=== PATIENT | female | born 1930 | race Caucasian/White ===

== ENCOUNTER 2016-08-07 12:16 | Inpatient (IN) | payer MEDICARE, OTHER ==
--- NOTE | ~2016-08-07 | HP ---
History And Physical [place] [id number] [facility] [place]. [address] NAME: VELASQUEZ RIVAS : 32 STATUS : ADM Tayler PAT#: [id number] AGE: 86 ADM/REG DATE : 08/07/16 MR#: [id number] REPORT SERV DATE: 08/07/16 DICTATED BY: LAVONNE LIU DATE: 08/07/16 REPORT STATUS : Draft TRANSCRIBED BY: MODL DATE: 08/07/16 DATE OF ADMISSION: 08/07/2016 CHIEF COMPLAINT: Shortness of breath with hypoxia on arrival and diarrhea. HISTORY OF PRESENT ILLNESS: The patient is a very pleasant 86-year-old female with past medical history of renal transplant in 1991, on chronic immunosuppressive therapy secondary to hypertension history but has been well controlled since, who presents after having multiple episodes of diarrhea today and shortness of breath. On arrival, the patient was noted to be hypoxic. The patient reports that every time she stands up, she is having loose bowel pattern that has been constant without pain or blood or no nausea or vomiting. No fever or chills, but has also concurrently been having 4 to 5 days of cough that has been waking her up from sleep with occasional shortness of breath. No dizziness or weakness per the patient. There are no worsening or relieving symptoms. Symptoms still currently present. Does not use oxygen at home but was noted to be hypoxic in the emergency room but responded to 2 L by nasal cannula. REVIEW OF SYSTEMS: GENERAL: No fevers or dizziness. EYES: No eye pain or visual change. ENT: Does have cough with minor production. NEUROLOGIC: No headache or confusion. SKIN: No rash or bruising. RESPIRATORY: Does have shortness of breath with cough. CV: No chest pain or palpitations. GI: Does have diarrhea with no nausea or vomiting. No dark stools or blood in stools or abdominal pain. No dysuria or hematuria. MUSCULOSKELETAL: No myalgias or arthralgias. ENDO: No fatigue. HEME: No bleeding or bruising. IMMUNOLOGIC: No rhinorrhea. PSYCHIATRIC: No anxiety or confusion. She did have episode of 1 fall yesterday which she used a Life Alert to get help with but no injury as she reports she just slipped from her bed. PAST MEDICAL HISTORY: The patient reports kidney transplant secondary to hypertension but since, has been doing well. Does have a seizure history. Vitamin D. TIAs. Osteoarthritis. Chronic immunosuppression. PAST SURGICAL HISTORY: Thyroid ablation; bilateral inguinal hernias; tonsillectomy; hysterectomy; renal transplant; right lower extremity rodding; transplant was done in 1991. Has had 7 children. The patient reports the name of her kidney donor is Ashley. SOCIAL HISTORY: No smoking. She is told to drink 1 alcohol beverage a week to keep good flow through her kidneys. No illicits. Has been single since the 80s. History And Physical [address] [place]. [address] NAME: VELASQUEZ RIVAS : 32 STATUS : ADM Tayler PAT#: [id number] AGE: 86 ADM/REG DATE : 08/07/16 MR#: [id number] REPORT SERV DATE: 08/07/16 DICTATED BY: LAVONNE LIU DATE: 08/07/16 REPORT STATUS : Draft TRANSCRIBED BY: DIO DATE: 08/07/16 FAMILY HISTORY: The patient does not recall any family history. Denies any recollection of any coronary disease, hypertension, or kidney issues. ALLERGIES: TO IV CONTRAST AND CIPRO. HOME MEDICATIONS: Aspirin; Imuran; Caltrate; Plavix; vitamin B; Neoral; folic acid; Keppra; Synthroid; Claritin; fish oil; and Deltasone. PHYSICAL EXAMINATION: VITAL SIGNS: Blood pressure 116/54, temperature 98.1, pulse 87, respirations 19, and O2 sats 93%. GENERAL: No acute distress. Calm, pleasant, well developed, well nourished. EYES: No scleral icterus. EOMI. ENT: Nares patent but dry mucous membranes. RESPIRATORY: No wheezes or rales. Clear to auscultation in the anterior lung odmo. Mild decreased lung sounds in the posterior lower lung odom. No stridor. CV: Regular rate. No rubs or gallops. GI: Soft, nontender. Hemoccult negative. Bowel sounds positive. : Deferred. MUSCULOSKELETAL: Moves all extremities x4. SKIN: Warm and dry. LYMPH: Does have mild right cervical tenderness. HEME: No bleeding or bruising. NEUROLOGIC: Alert and oriented. Moves all extremities x4. Symmetrical strength in upper and lower extremities. PSYCHIATRIC: Appropriate mood and affect. DATA: Chest x-ray, mild bibasilar atelectasis with trace left pleural effusion. Urinalysis, negative leukocyte esterase, nitrite but many bacteria. ABG, pH 7.38, PCO2 of 36, PO2 of 58, bicarb 20.7. CMP: Sodium 138, potassium 3.9, chloride 105, bicarb 21, BUN and creatinine 21 and 0.89. Glucose 119. Calcium 8.5. T-bilirubin 0.5. LFTs within normal limits. Troponin negative. CBC grossly within normal limits. ASSESSMENT AND PLAN: 1. Bronchitis. 2. Diarrhea. 3. Seizure history. 4. Immunosuppression. 5. TIA history. 6. Fall. PLAN: 1. For bronchitis with hypoxia on arrival, O2, DuoNeb, supportive treatment. Start doxycycline. O2 trial in a.m. Flutter valve and ICS. Repeat chest x-ray in a.m. 2. Diarrhea. Check stool studies. Gentle IV fluids. 3. Seizure history. Keppra. History And Physical [address] [address] NAME: VELASQUEZ RIVAS : 32 STATUS : ADM Tayler PAT#: [id number] AGE: 86 ADM/REG DATE : 08/07/16 MR#: [id number] REPORT SERV DATE: 08/07/16 DICTATED BY: LAVONNE LIU DATE: 08/07/16 REPORT STATUS : Draft TRANSCRIBED BY: MODMaddy DATE: 08/07/16 4. Immunosuppression. Continue home medications. 5. TIA history. Continue Plavix and aspirin. 6. Fall, slipped from bed, does have Life Alert for protection. We will check CPK in a.m. All questions answered with the patient and the family at the bedside. Disposition pending treatment plan. DDN/MODL Lavonne Liu MD / [id number] CC: Thong Reynoso MD
--- NOTE | ~2016-08-07 | DS ---
Discharge Summary [facility] [address] [place]. [address] NAME: VELASQUEZ RIVAS : 32 STATUS : DIS IN PAT#: [id number] AGE: 86 ADM/REG DATE : 08/08/16 MR#: [id number] REPORT SERV DATE: 08/10/16 DICTATED BY: MAGALI LUONG DATE: 08/10/16 REPORT STATUS : Draft TRANSCRIBED BY: MODL DATE: 08/10/16 ADMISSION DATE: 08/08/2016 DISCHARGE DATE: 08/10/2016 HOSPITAL COURSE: 86-year-old pleasant female with known history of renal transplant in 1991 on chronic immunosuppressant medication, history of hypertension, hypovitaminosis D, history of seizure, TIA, osteoarthritis, known history of thyroid ablation, and right lower extremity ORIF. The patient comes in shortness of breath, diarrhea, thought to have had a bronchitis placed on doxycycline, DuoNeb, incentive spirometry oxygen, found to have influenza A, pneumonia, was resumed on her home dose Keppra. The patient has had a fall risk history. As a result, Physical Therapy evaluated the patient. PA lateral chest x-ray most recently shows improvement in aeration, decreased infiltration. The patient, as a result, is amenable to be discharged. I would like Physical Therapy to make a formal assessment regarding SNF rehab versus home. If it is home, we will provide home health, home PT, rolling walker and the patient has a rolling walker at home. She is on Tamiflu and doing quite well with improvement with decreased oxygen requirements. DISCHARGE MEDICATIONS: Aspirin 81 p.o. daily; azathioprine 50 p.o. daily; Caltrate 600 p.o. at bedtime; Plavix 75 p.o. daily; vitamin B12 1 mg p.o. daily; Neoral 75 p.o. b.i.d. as well as folic acid 1 mg p.o. daily; Keppra 250 p.o. daily as well as Keppra 500 p.o. at bedtime; Claritin p.r.n.; Synthroid 100 mcg p.o. q.a.m.; omega 3 fatty acids 1 mg p.o. daily; Tamiflu 75 p.o. daily for 3 more days, given a little bit more prolonged course given immunosuppression, prednisone 5 p.o. daily. Albuterol, see order p.r.n. Given nebulizers as well. FOLLOWUP: PCP 2 weeks. Nephrology 4 to 8 weeks. Discharge home with rolling walker, home health, home PT. If PT recommends going to facility, will be going to facility via ambulance #6, do a rolling walker. Discharge diagnoses will be influenza A, pneumonia, debility, immunosuppression, hypertension, hypothyroidism, renal transplant. All questions were answered. It took well over 30 minutes to do. JONNY/DIO Magali Luong DO / [id number] CC: Discharge Summary [address] [address] NAME: VELASQUEZ RIVAS : 32 STATUS : DIS IN PAT#: [id number] AGE: 86 ADM/REG DATE : 08/08/16 MR#: [id number] REPORT SERV DATE: 08/10/16 DICTATED BY: MAGALI LUONG DATE: 08/10/16 REPORT STATUS : Draft TRANSCRIBED BY: MODMaddy DATE: 08/10/16 Ramon Young M.D.
[~2016-08-07 12:16] MED LIST: ARMOUR; ASAB PO; B12250T PO; CALTRA600D PO; CLARIT10 PO; CYCLOSPORINE; CYCLOSPORINE100 MG PO; CYCLOSPORINE25 MG OR; DSS50 PO; FISH OIL PO; FOLIC PO; IMU PO; IMURAN; KEPPRA250 PO; LOPID6 PO; NEORAL25 MG PO; OS500+D PO; OYST-CAL500 MG PO; P5 PO; PLAVIX PO; PREDNISONE; PREDNISONE2.5 MG PO; SYN1 PO; SYN125 PO; T PO; TESS PO; VASELINE TOP; VITAMIN B-121000 MC1 SL; VITE PO; ZETIA PO; [UNRECOGNIZED DRUG - OTHER] TOP
[2016-08-07 12:55] LABS: BASOPHILS 0.3 %; BASOPHILS ABSOLUTE 0.02 10/3/uL (0.0-0.16); EOSINOPHILS 0.3 %; EOSINOPHILS ABSOLUTE 0.02 10/3/uL (0.0-0.53); HEMOGLOBIN 13.3 g/dL (12.0-16.0); IMMATURE GRANULOCYTES 0.3 %; IMMATURE GRANULOCYTES ABSOLUTE 0.02 10/3/uL (0.0-0.11); LYMPHOCYTES 11.9 %; MEAN CORPUS HGB CONC 32.4 g/dL (32.0-36.0); MEAN CORPUSCULAR VOLUME 95.6 fL (80-100); MEAN PLATELET VOLUME 10.6 fL (9.2-13.0); MONOCYTES ABSOLUTE 0.82 10/3/uL (0.21-1.20); NEUTROPHILS 73.2 %; NEUTROPHILS ABSOLUTE 4.28 10/3/uL (2.02-8.40); PLATELET COUNT 192 10/3/uL (150-400); RBC DISTRIBUTION WIDTH 13.9 % (12.0-16.0); RED CELL COUNT 4.29 10/6/uL (4.0-5.6); WHITE BLOOD CELLS 5.9 10/3/uL (4.5-10.5)
[2016-08-07 12:58] LABS: MANUAL DIFF NO %
[2016-08-07 13:11] LABS: A/G RATIO 0.8 (0.7-1.9); CALCIUM, SERUM 8.5 MG/DL (8.5-10.4); CHLORIDE, SERUM 105 MMOL/L (96-112); CO2 (CARBON DIOXIDE) 21 MMOL/L (24-34); CREATININE 0.89 MG/DL (0.55-1.02); GFR AFRICAN AMERICAN 68 ML/MIN (>=60); GFR NON AFRICAN AMERICAN 59 ML/MIN (>=60); POTASSIUM, SERUM 3.9 MMOL/L (3.5-5.3); SGOT(AST) 32 U/L (5-40); SGPT(ALT) 19 U/L (5-65); SODIUM, SERUM 138 MMOL/L (135-148); TROPONIN I <0.02 NG/ML (<0.05)
[2016-08-07 13:12] LABS: ALKALINE PHOSPHATASE 70 U/L (45-117); BUN (BLOOD UREA NITROGEN) 21 MG/DL (6-23); GLUCOSE, SERUM 119 MG/DL (60-99); TOTAL BILIRUBIN 0.5 MG/DL (0-1.2)
[2016-08-07 15:04] LABS: BE (BASE EXCESS) -3.7 MEQ/L (0 +/- 2.5); CARBOXYHEMOGLOBIN 1.2 % (0-3); HCO3 (ACTUAL BICARBONATE) 20.7 MEQ/L (23-27); HEMOBLOGIN CONTENT 12.7 G/DL (12-16); INSTRUMENT SERIAL # 8087; METHEMOGLOBIN 0.1 % (0-3); O2 CONTENT 15.8 VOL% (18-24); PCO2 (CO2 TENSION) 36 MMHG (35-45); PO2 (O2 TENSION) 58 MMHG (79-93); SAMPLE Arterial; pH 7.38 (7.37-7.43)
[2016-08-07 15:05] LABS: ALLENS TEST Pos
[2016-08-07 15:40] LABS: WBC (NOT ORDERED) (RFLEX) 0 (0-5)
[2016-08-07 15:46] LABS: ASCORBIC ACID (UR NOT ORDER) NEG (NEG); BILIRUBIN, URINE NEGATIVE (NEG); ER URINALYSIS TAT 0 Hrs 07 Mins; KETONE, URINE NEGATIVE (NEG); LEUKOCYTE ESTERASE(NOT OR NEG (NEG); NITRITE (URINE) NEG (NEG)
[2016-08-07] MEDS ORDERED: KEPPRA250 PO (16:46)
[2016-08-07] MEDS ORDERED: CYANO1000T PO (16:46)
[2016-08-07] MEDS ORDERED: FISH OIL1200 MG PO (16:46)
[2016-08-07] MEDS ORDERED: NEORAL25 MG PO (16:46)
[2016-08-07] MEDS ORDERED: P5 PO (16:47)
[2016-08-07] MEDS ORDERED: KEPPRA500 PO (16:47)
[2016-08-07] MEDS ORDERED: PLAVIX PO (16:47)
[2016-08-07] MEDS ORDERED: SYN1 PO (16:47)
[2016-08-07] MEDS ORDERED: CLARIT10 PO (16:48)
[2016-08-07] MEDS ORDERED: IMU PO (16:48)
[2016-08-07] MEDS ORDERED: ASAB PO (16:49)
[2016-08-07] MEDS ORDERED: FOLIC PO (16:49)
[2016-08-07] MEDS ORDERED: CALTRAT600 PO (16:49)
[2016-08-08 02:24] LABS: INFLUENZA A SCREEN POSITIVE (NEGATIVE); INFLUENZA B SCREEN NEGATIVE (NEGATIVE)
[2016-08-08 05:01] LABS: BASOPHILS 0.2 %; BASOPHILS ABSOLUTE 0.01 10/3/uL (0.0-0.16); EOSINOPHILS 0.7 %; EOSINOPHILS ABSOLUTE 0.03 10/3/uL (0.0-0.53); HEMATOCRIT 38.5 % (36.0-48.0); HEMOGLOBIN 12.4 g/dL (12.0-16.0); IMMATURE GRANULOCYTES 0.2 %; IMMATURE GRANULOCYTES ABSOLUTE 0.01 10/3/uL (0.0-0.11); LYMPHOCYTES 30.9 %; LYMPHOCYTES ABSOLUTE 1.24 10/3/uL (0.67-4.30); MEAN CORPUS HGB CONC 32.2 g/dL (32.0-36.0); MEAN CORPUSCULAR VOLUME 96.3 fL (80-100); MEAN PLATELET VOLUME 10.7 fL (9.2-13.0); MONOCYTES 12.5 %; NEUTROPHILS 55.5 %; NEUTROPHILS ABSOLUTE 2.22 10/3/uL (2.02-8.40); PLATELET COUNT 192 10/3/uL (150-400); RBC DISTRIBUTION WIDTH 13.8 % (12.0-16.0)
[2016-08-08 05:02] LABS: MANUAL DIFF NO %
[2016-08-08 05:15] LABS: BUN (BLOOD UREA NITROGEN) 15 MG/DL (6-23); CALCIUM, SERUM 8.2 MG/DL (8.5-10.4); CHLORIDE, SERUM 107 MMOL/L (96-112); CO2 (CARBON DIOXIDE) 25 MMOL/L (24-34); CPK 106 U/L (0-200); CREATININE 0.59 MG/DL (0.55-1.02); GFR AFRICAN AMERICAN 97 ML/MIN (>=60); GFR NON AFRICAN AMERICAN 84 ML/MIN (>=60); GLUCOSE, SERUM 85 MG/DL (60-99); POTASSIUM, SERUM 3.7 MMOL/L (3.5-5.3); SODIUM, SERUM 143 MMOL/L (135-148)
[2016-08-10 05:17] LABS: HEMOGLOBIN 12.6 g/dL (12.0-16.0); MEAN CORPUS HGB CONC 31.5 g/dL (32.0-36.0); MEAN CORPUSCULAR HEMOGLOB 29.9 pg (26.0-34.0); MEAN PLATELET VOLUME 10.5 fL (9.2-13.0); PLATELET COUNT 173 10/3/uL (150-400); RBC DISTRIBUTION WIDTH 13.6 % (12.0-16.0); RED CELL COUNT 4.21 10/6/uL (4.0-5.6); WHITE BLOOD CELLS 3.3 10/3/uL (4.5-10.5)
[2016-08-10 05:19] LABS: MANUAL DIFF YES %
[2016-08-10 05:25] LABS: BUN (BLOOD UREA NITROGEN) 13 MG/DL (6-23); CALCIUM, SERUM 8.9 MG/DL (8.5-10.4); CHLORIDE, SERUM 106 MMOL/L (96-112); CO2 (CARBON DIOXIDE) 27 MMOL/L (24-34); CREATININE 0.64 MG/DL (0.55-1.02); GFR AFRICAN AMERICAN 94 ML/MIN (>=60); GFR NON AFRICAN AMERICAN 81 ML/MIN (>=60); GLUCOSE, SERUM 79 MG/DL (60-99); POTASSIUM, SERUM 3.9 MMOL/L (3.5-5.3); SODIUM, SERUM 142 MMOL/L (135-148)
[2016-08-10 06:21] LABS: BAND NEUTROPHILS 2 %; BASOPHILS 1 %; BASOPHILS ABSOLUTE (CALC) 0.03 10/3/uL (0.0-0.16); EOSINOPHILS 1 %; EOSINOPHILS ABSOLUTE (CALC) 0.03 10/3/uL (0.0-0.53); LYMPHOCYTES 52 %; LYMPHOCYTES ABSOLUTE (CALC) 1.72 10/3/uL (0.67-4.30); MONOCYTES 10 %; MONOCYTES ABSOLUTE (CALC) 0.33 10/3/uL (0.21-1.20); NEUTROPHILS ABSOLUTE (CALC) 1.19 10/3/uL (2.02-8.40); PLATELET ESTIMATE ADQ (ADEQUATE); RBC MORPHOLOGY NORM (NORMAL); SEGMENTED NEUTROPHIL (0) 34 %; TOTAL NUCLEATED CELLS 100
[2016-08-10] MEDS ORDERED: TAMIFLU PO (15:57)
[2016-08-10] MEDS ORDERED: ALBUTEROL0.083 % INH (16:11)
[2016-08-10] MEDS ORDERED: LIPITOR20 PO (16:13)
== END 2016-08-10 16:37 | disposition home health service (06) | DRG 194 ==
LOC: ER 12:16 → CDU1 18:37
PROVIDERS: Emergency Medicine; Internal Medicine
DX: J10.00 Influenza due to other identified influenza virus with unspecified type of pneumonia (principal); Z94.0 Kidney transplant status; R56.9 Unspecified convulsions; R54 Age-related physical debility; R09.02 Hypoxemia; J40 Bronchitis, not specified as acute or chronic; R19.7 Diarrhea, unspecified; E55.9 Vitamin D deficiency, unspecified; E89.0 Postprocedural hypothyroidism; I10 Essential (primary) hypertension; M19.90 Unspecified osteoarthritis, unspecified site; W06.XXXA Fall from bed, initial encounter; Z91.81 History of falling; Z79.82 Long term (current) use of aspirin; Z79.899 Other long term (current) drug therapy; Z86.73 Personal history of transient ischemic attack (TIA), and cerebral infarction without residual deficits; Z90.710 Acquired absence of both cervix and uterus; Z91.041 Radiographic dye allergy status; Z88.1 Allergy status to other antibiotic agents; Z79.02 Long term (current) use of antithrombotics/antiplatelets
CPT/HCPCS: 36600; 71010; 71020; 80048; 80053; 81001; 82550; 82805; 83735; 84484; 85025; 87449; 87804; 93005; 94640; 97161-GP; 99285; A9270-GY; G8978-CI-GP; G8979-CH-GP; J7500; J7515